=== PATIENT | female | born 1960 | race Asian ===

== ENCOUNTER 2017-06-07 09:04 | Emergency (ER) | payer OTHER ==
[2017-06-07 09:09] VITALS: BP 153/81; PULSE 96; RESP 18; O2SAT 99
[2017-06-07] MEDS ORDERED: oxyCODONE-Acetamin 5-325 mg Tablet PO ONE ×2 (09:40→11:10)
--- NOTE | 2017-06-07 10:39 | ED.REPORT ---
HPI-Extremity Problem Lower Date of Service Jun 07, 2017 ED Provider: Amalia Velez MD This is a 56-year-old female with history of hypertension, depression and anxiety who presents to the emergency department for left lower extremity pain. Describes a pressure like, sharp sensation going from her left hip down to her toes. This started 2 days ago and has been gradually getting worse currently 10 out of 10 in severity. Patient has tried Celebrex every 3 hours, stretches, creams all without relief. Lately she has been unable to walk because of this. She denies numbness, swelling or erythema. She is unable to move it due to pain. She notes having a long plane ride in the last week from [facility]. She also notes driving to [place] 2 hours there and back 4 days prior. 2 days prior she has been getting ready to move and packing boxes requiring a lot of bending. She denies any fevers, chills, chest pain, shortness of breath, abdominal pain, back pain, incontinence, numbness. She has no history of DVT, and has had no recent surgeries. Nursing Notes Stated Complaint: LEFT LEG PAIN Chief Complaint: Extremity Trauma Nursing Notes Reviewed: Yes Allergies: Coded Allergies: No Known Allergies (Unverified , 06/07/17) Scheduled Diazepam (Valium) 5 Mg Tablet 5 MG PO TID Scheduled PRN oxyCODONE-Acetaminophen 5-325 mg (oxyCODONE-Acetaminophen 5-325 mg) 1 Each Tablet 1 TAB PO Q6H PRN PRN For Pain General Time Seen by MD: 09:20 Chief Complaint Other (left lower extremity pain) Hx Obtained From: Patient, Spouse Past Medical History Past Medical History Chronic neck pain Anxiety Osteoarthritis Reports: Hypertension Reports: Atrial fibrillation, Depression Past Surgical History Ablation Reports: , Hysterectomy Smoking History Never Smoker Social History Alcohol Use: "Social" Drug Use: Denies drug use Other Social History: Good social support, Ambulatory Status Independent Review of Systems Constitutional: Denies: Chills, Fever Musculoskeletal: Reports: Extremity pain, Joint pain, Myalgia, Denies: Back pain, Extremity swelling, Lumbar pain Neurologic: Reports: Problem walking, Denies: Headache, Numbness, Weakness Complete sys rev & neg: except as marked. Respiratory: Denies: Shortness of breath Cardiovascular: Denies: Chest pain GI: Denies: Abdominal pain Female: Denies: Incontinence, Urinary frequency, Urinary urgency Physical Exam Initial Vital Signs Vital Signs (First) Date Time Temp Pulse Resp B/P Pulse Ox O2 Delivery O2 Flow Rate FiO2 06/07/17 09:09 36.6 96 18 153/81 99 Room Air Initial VS: Reviewed General/Constitutional: Well-developed, Well-nourished Head / Eyes: Atraumatic, Normocephalic ENT: Mucous membranes moist, Conjunctiva normal, No scleral icterus Respiratory: Breath sounds normal, Clear to auscultation, No respiratory distress Cardiovascular: Regular rate & rhythm, Heart sounds normal, Intact distal pulses Abdomen / GI: Soft, Non-tender, No guarding, No rebound, No distention Back: No CVA tenderness Skin: Warm, Dry Neurologic: Alert, Oriented Psychiatric: Mood/affect normal, Behavior normal, Normal thought content Lower Extremity / Pelvis / MS: Atraumatic, Inspection NL, No swelling, No erythema, Vascular intact Patient has difficulty with active movement of left hip secondary to pain. Straight leg test to 20 elicits pain in the left hip. Patient able to actively bend knee. Sensory is intact. motor strength in left ankle and toes 5 out of 5. Patient is tender in the left gluteal region and left SI joint. No swelling or tenderness of the left calf noted. Re-Eval/Medical Decision Med Decision/Clinical Course This is a 56-year-old female with history of depression, anxiety and hypertension who presents to the emergency department for left lower extremity pain. This started 2 days prior and has been gradually worsening. The pain seems to be exacerbated in certain positions. She does have significant tenderness when palpating in the gluteal region. Her distribution of pain follows the sciatic pathways wrapping around anteriorly from her gluteal region. Her pain was reduced with Toradol, Decadron and Percocet. There is no focal swelling or neurologic deficits. No tenderness to palpation in the lower extremity beyond the gluteal region. My suspicion is low for DVT given these findings. Her distal pulses are intact. This is likely related to sciatic nerve pain. Patient is moving to [place] in one week and given instructions to see PCP with referral to physical therapy when she is over there. Her Percocet , Valium, Decadron given to help with pain. Patient told to return to the ER if she develops swelling, fevers or chills, chest pain or shortness of breath. Re-Evaluation/Progress : Re-Evaluation/Progress Note: Patient had improvement in her symptoms after given Toradol and Percocet. She is able to stand up but has pain in left leg with ambulation. Discharge & Departure Impression: Primary Impression: Left leg pain Additional Impression: Radicular leg pain Disposition: Home Discharge Condition All VS Reviewed: Yes Condition: Stable Patient Instructions: Piriformis Syndrome (ED), Sciatica (ED) Additional Instructions: Take the Decadron on 06/08/17 and 06/09/17. You may take Valium and Percocet as needed for the pain. Try to rest your muscles and avoid heavy lifting. You may require physical therapy if this does not get better. Try to find a family practice provider in [place] when you get there and follow-up with the physical therapist. If you start to notice swelling and increased pain, return back to the emergency department. If you start to that develope chest pain and shortness of breath also return to the emergency department. Referrals: Jared Eddy MD (PCP) Attending Statement Seen and examined. Agree documentation as above. No evidence of epidural abscess, discitis, cauda equina syndrome, nor fracture or additional trauma. copies to: Jared Eddy MD, Malik A DO Jun 07, 2017 10:39 Amalia Velez MD Jun 07, 2017 17:01
[2017-06-07] MEDS ORDERED: OXYC1TAB24 PO (12:28)
[2017-06-07] MEDS ORDERED: DIAZ5TAB PO (12:28)
[2017-06-07 12:41] VITALS: BP 138/77; PULSE 70; RESP 16
== END 2017-06-07 12:42 | disposition home or self-care (01) ==
LOC: SED 09:04
DX: M79.662 Pain in left lower leg (principal); M54.16 Radiculopathy, lumbar region; I48.91 Unspecified atrial fibrillation; F41.8 Other specified anxiety disorders; I10 Essential (primary) hypertension
CPT/HCPCS: 96372; 99283; J1885

== ENCOUNTER 2017-06-16 18:50 | Emergency (ER) | payer OTHER ==
[~2017-06-16] VITALS: Ht 160 cm; Wt 89.1 kg
[~2017-06-16 18:50] MED LIST: DIAZ5TAB PO; OXYC1TAB24 PO
[2017-06-16 19:08] VITALS: BP 165/100; PULSE 96; RESP 18; O2SAT 99
[2017-06-16] MEDS ORDERED: HYDROmorphone 1 mg/mL Inj IM ONE (20:10)
--- NOTE | 2017-06-16 20:25 | DRSVH ---
PROCEDURE: X-RAY LEFT HIP COMPLETE, MINIMUM TWO VIEWS ([id number]) INDICATIONS: pain TECHNIQUE: 2 views of the hip were acquired. COMPARISON: None. FINDINGS: Bones: No fractures or dislocations. No suspicious bony lesions. The visualized pelvic ring appear s intact. Soft tissues: No suspicious soft tissue calcifications or masses. IMPRESSION: No abnormality is seen in these 2 views of the left hip. Dictated by: Soren Adam M.D. on 06/16/2017 at 20:22 Approved by: Soren Adam M.D. on 06/16/2017 at 20:23
--- NOTE | 2017-06-16 23:05 | ED.REPORT ---
HPI-Extremity Problem Lower Date of Service Jun 16, 2017 ED Provider: Sal Roberts MD The pt is a 56 year old female with a history of depression, osteoarthritis, atrial fibrillation, hypertension and anxiety who presents to the ED complaining of left hip pain. The pain began on 06/05/2017 soon after the pt was doing a lot of bending and lifting to move boxes. Her left leg became severely painful that night and these symptoms have continued since. The pt is unable to lift her leg easily or put pressure on it without severe pain. The pt denies loss of sensation and saddle numbness, but states that these areas feel "strange and different." She has had no weakness in her leg. She denies incontinence or urinary retention. The pt was seen in the ED on 06/07/2017 and prescribed steroids and Valium. She has taken these medications without significant relief. She has since been taking Tylenol and Celebrex for her pain. The pt has been seen by a chiropractor and master carpenter with only temporary relief. She has no history of back surgery, IV drug use. She states that she is not on any blood thinners. Nursing Notes Stated Complaint: LEG PAIN Chief Complaint: Extremity Trauma Nursing Notes Reviewed: Yes Allergies: Coded Allergies: No Known Allergies (Unverified , 06/07/17) Scheduled Diazepam (Valium) 5 Mg Tablet 5 MG PO TID Scheduled PRN oxyCODONE-Acetaminophen 5-325 mg (oxyCODONE-Acetaminophen 5-325 mg) 1 Each Tablet 1 TAB PO Q6H PRN PRN For Pain General Time Seen by MD: 20:04 Chief Complaint Other (Left hip pain) Hx Obtained From: Patient Arrived By: Walk-in Onset Occurred: More than a week ago... Symptom Duration: Since onset Recent Healthcare: Recent doctor visit Similar Sx Previous: Yes Past Medical History Past Medical History Chronic neck pain Anxiety Osteoarthritis Reports: Hypertension Reports: Atrial fibrillation, Depression Past Surgical History Ablation Reports: , Hysterectomy Smoking History Never Smoker Social History Alcohol Use: "Social" Drug Use: Denies drug use Other Social History: Good social support, Ambulatory Status Independent Review of Systems Review of Systems Note: sensation change denies saddle numbness denies incontinence denies urinary retention Musculoskeletal: Reports: Extremity pain, Joint pain, Denies: Neck pain Skin: Denies Rash Neurologic: Denies: Numbness Complete sys rev & neg: except as marked. Respiratory: Denies: Non-productive cough, Shortness of breath Cardiovascular: Denies: Chest pain GI: Denies: Abdominal pain, Vomiting Physical Exam Initial Vital Signs Vital Signs (First) Date Time Temp Pulse Resp B/P Pulse Ox O2 Delivery O2 Flow Rate FiO2 06/16/17 19:08 36.3 96 18 165/100 99 Room Air Initial VS: Reviewed Lower Extremity / Pelvis / MS: Atraumatic, Full range of motion Ankle / Foot: Atraumatic, Full range of motion General/Constitutional: Awake, Alert laying on right side holding left hip in partial flexion appears uncomfortable Respiratory / Chest: Atraumatic, Breath sounds NL, Breath sounds = bilat, No respiratory distress Cardiovascular: Heart rate NL, Regular rhythm, Heart sounds NL, No gallop, No murmurs, No rubs Skin: Atraumatic, Color NL, No rash, Warm, Dry Neurologic: Oriented X3, Speech NL, No motor deficits subjective sensation change in left lateral lower extremity sensation intact able to feel light touch subjective sensation change about left anterior toribio sensation intact about thigh and groin area normal patellar reflexes bilaterally strength 5/5 in bilateral lower extremities Head / Eyes: Atraumatic, Normocephalic, PERRL, EOMI ENT: Atraumatic, Airway patent, Mucous membranes moist Neck: Atraumatic, Supple, Full range of motion Abdomen: Atraumatic, Soft, Non-tender Back: Atraumatic, Full range of motion Additional Notes: no midline cervical, thoracic or lumbar tenderness, bony deformity or step-offs Upper Extremity / MS: Atraumatic, Full range of motion Psychiatric: Affect NL, Mood NL Interpretation & Diagnostics Interpretation & Diagnostics: Left Hip X-Ray: IMPRESSION: No abnormality is seen in these 2 views of the left hip. Dictated by: Soren Adam M.D. on 06/16/2017 at 20:22 Approved by: Soren Adam M.D. on 06/16/2017 at 20:23 Re-Eval/Medical Decision Med Decision/Clinical Course The patient is a 56-year-old female who presents with severe left leg pain that she states is sharp/stabbing and intermittent. She has been seen previously for this problem and prescribed Valium, NSAIDs and oxycodone without relief. Here in the emergency department the patient is afebrile and hemodynamically stable. She appears quite uncomfortable. She is noted to be neurologically intact in the bilateral lower extremities with normal reflexes, normal strength and normal sensation. The description of the patient's pain seems quite consistent with sciatica. Given her significant discomfort she was initially treated with IV hydromorphone. The patient was noted to be afebrile and hemodynamically stable. Upon entering the room the patient's was extremely upset. He stated that he was very angry about the wait time and that he was very upset about the treatment that his had received at this institution. He seemed primarily irritated by interactions that they have had with the patient's primary care physician. He stated that they had already filed formal complaints against the patient's primary care physician. I spent a long time speaking with the patient 's as well as the patient herself and listening to their multiple complaints regarding wait time and general service-related grievences. He stated that he was "very educated" and that "both their children are physicians " and that he expected much more attentive care. I explained that we would do our best to address these issues. Left Hip X-Ray ordered from triage as below: IMPRESSION: No abnormality is seen in these 2 views of the left hip. Patient reported a high level of anxiety and was given IV Ativan. Thereafter she was calm and sleeping. A long conversation with the patient as well as her explaining that her symptoms seem most consistent with sciatica and that I saw no evidence of heart or colitis syndrome, evidence of central cord impingement and that given her absence of IV drug use, fever that epidural/ paraspinal abscess was unlikely. She has had no significant traumatic injuries and therefore acute bony injury/fracture is also unlikely. She has not had any weight loss or history of cancer making mass effect from tumor unlikely. I explained that advanced imaging studies such as MRI would likely not frame changer. Nonetheless, they have requested an MRI to definitively assess for the cause of her back pain. I have explained that obtaining this study would take several hours and that she would likely remain in the emergency department overnight. He would like to have this done. The patient was signed out to Dr. Giraldo pending MRI. At time of signout the patient was stable and comfortable. I performed signout at the bed and introduced the patient to Dr. Giraldo. Source of Hx: Old records Counseled Regarding: Diagnosis, Lab results Discharge & Departure Shift Change Sign-Out Patient Care Transferred: Yes Discussed Complaint(s): Yes Imaging Studies: Ordered, not yet done Impression: Primary Impression: Sciatica Laterality: left Qualified Code: M54.32 - Sciatica, left side Additional Impressions: Back pain Back pain location: low back pain Chronicity: acute Back pain laterality: left Sciatica presence: with sciatica Sciatica laterality: sciatica of left side Qualified Code: M54.42 - Lumbago with sciatica, left side Anxiety Discharge Condition All VS Reviewed: Yes Condition: Stable Referrals: Jared Eddy MD (PCP) Care Transferred to: Dr. Giraldo Care Transferred at: 00:00 ([id number]) Scribe Attestation Portions of this note were transcribed by Pat Odell. I, Dr. Roberts personally performed the history, physical exam and medical decision-making; I reviewed and confirmed the accuracy of the information in the transcribed note. copies to: Jared Eddy MD, Beck O MD Jun 16, 2017 23:05 PAT ODELL Jun 16, 2017 23:13
[2017-06-17] MEDS ORDERED: HYDR-4003 PO (02:46)
[2017-06-17] MEDS ORDERED: LORA-302 PO (03:06)
[2017-06-17 03:13] VITALS: BP 147/89; PULSE 83; RESP 18; O2SAT 99
--- NOTE | 2017-06-17 08:34 | DRSVH ---
PROCEDURE: MRI LUMBAR SPINE WITHOUT CONTRAST ([id number]) INDICATIONS: LBP, L leg sciatic sx TECHNIQUE: Noncontrast sagittal T1 spin echo and T2 fast echo, sagittal STIR, axial T1 and T2 fast spin echo thr ough the lumbar spine. In cases with scoliosis, additional coronal T2 fast spin echo may be performe d. COMPARISON: None. FINDINGS: Image quality: Excellent. Alignment and Curvature: There is normal bony alignment. Bone Marrow: Marrow is of normal overall signal. No acute vertebral body compression fractures. Spinal Cord: Conus medullaris terminates at the T12 level. Visualized cord demonstrates normal sign al and size. Paraspinous Soft Tissues: No paravertebral masses. T12-L1: There is a 4 mm diameter right-sided perineural cyst (series 5, image 3). This results in mil d right neuroforaminal stenosis. No left neural foraminal narrowing or canal stenosis. L1-L2: Normal appearance. L2-L3: Mild disc bulge. No canal stenosis. No neural foraminal narrowing. L3-L4: Mild disc bulge. No canal stenosis or foraminal stenosis. L4-L5: Moderate disc desiccation and height loss. Reactive endplate changes. Mild disc bulge. Mild fa cet and ligamentum flavum hypertrophy. There is a 1.1 x 0.7 x 1.0 cm T1/T2 hypointense epidural mass which narrows the left lateral recess and deforms the left aspect of the cord (series 5, image 14). T his abuts the exiting L4 nerve root. No canal stenosis. Mild right and moderate left neuroforaminal s tenosis. L5-S1: Moderate disc desiccation and height loss. Broad-based disc bulge. No canal stenosis. Moderate facet and ligamentum flavum hypertrophy. Mild bilateral foraminal narrowing. IMPRESSION: 1. T12-L1 right-sided perineural cyst with mild right neural foraminal narrowing. 2. Probable L4-L5 left-sided extruded disc fragment which abuts the exiting left L4 nerve root. Schwa nnoma or nerve sheath tumor cannot be excluded. Contrast enhanced MRI of the lumbar spine is recommen ded. Please note, this recommendation was not discussed by the overnight radiologist with the referring pr maria isabel. This was discussed with Dr. Lau at 8:32 AM on 06/17/17. Dictated by: Patricia Quintero M.D. on 06/17/2017 at 8:09 Approved by: Patricia Quintero M.D. on 06/17/2017 at 8:32
== END 2017-06-17 03:15 | disposition home or self-care (01) ==
LOC: SED 18:50
DX: M51.26 Other intervertebral disc displacement, lumbar region (principal); M54.42 Lumbago with sciatica, left side; X50.0XXA Overexertion from strenuous movement or load, initial encounter; Y93.89 Activity, other specified; Y92.89 Other specified places as the place of occurrence of the external cause; Y99.8 Other external cause status; F41.8 Other specified anxiety disorders; I11.9 Hypertensive heart disease without heart failure; I48.91 Unspecified atrial fibrillation; Z90.710 Acquired absence of both cervix and uterus
CPT/HCPCS: 72148; 73502; 96372; 96374; 99285; J1170; J2060